=== PATIENT | female | born 1945 | race Caucasian/White ===

== ENCOUNTER → 2019-09-11 | Outpatient (CLI) | payer OTHER | LOC: EDBD 10:38 → SJCVC 10:38 | DX: R94.31 Abnormal electrocardiogram [ECG] [EKG] (principal); I10 Essential (primary) hypertension; I48.0 Paroxysmal atrial fibrillation; E78.5 Hyperlipidemia, unspecified; D68.59 Other primary thrombophilia; E78.1 Pure hyperglyceridemia; Z87.898 Personal history of other specified conditions; Z90.49 Acquired absence of other specified parts of digestive tract; Z79.899 Other long term (current) drug therapy ==

== ENCOUNTER → 2021-01-19 | Outpatient (CLI) | payer OTHER | LOC: SJCVC 13:46 | PROVIDERS: ATTEND Internal Medicine Cardiovascular Disease | DX: R94.31 Abnormal electrocardiogram [ECG] [EKG] (principal); I45.10 Unspecified right bundle-branch block; I48.91 Unspecified atrial fibrillation; E78.5 Hyperlipidemia, unspecified; I10 Essential (primary) hypertension; E03.9 Hypothyroidism, unspecified; D68.59 Other primary thrombophilia; Z72.89 Other problems related to lifestyle; Z79.899 Other long term (current) drug therapy; Z88.5 Allergy status to narcotic agent; Z88.1 Allergy status to other antibiotic agents ==